=== PATIENT | male | born 2000 | race Hispanic/Latino ===

== ENCOUNTER 2022-03-14 15:36 | Emergency (ER) | payer SELFPAY ==
[2022-03-14] MEDS ORDERED: Ketorolac Tromethamine 30 MG/ML VIAL ONE (16:40)
[2022-03-14] MEDS ORDERED: Cyclobenzaprine 10 MG TAB ONE (18:10)
== END 2022-03-14 18:44 | disposition home or self-care (01) ==
LOC: CSHERS 15:36
DX: M62.838 Other muscle spasm (principal)
CPT/HCPCS: 99283; J1885